=== PATIENT | female | born 1990 | race Native Hawaiian/Other Pacific Islander ===

== ENCOUNTER 2018-12-12 10:18 | Outpatient (CLI) | payer OTHER | END 2018-12-12 20:20 | disposition home or self-care (01) | LOC: US 10:18 | DX: N63.0 Unspecified lump in unspecified breast (principal) ==

== ENCOUNTER 2019-02-05 15:16 | Outpatient (CLI) | payer OTHER | END 2019-02-05 22:31 | disposition home or self-care (01) | LOC: US 15:16 | DX: N63.11 Unspecified lump in the right breast, upper outer quadrant (principal) ==

== ENCOUNTER 2019-06-17 09:31 | Outpatient (CLI) | payer OTHER | END 2019-06-17 23:12 | disposition home or self-care (01) | LOC: US 09:31 | DX: N64.4 Mastodynia (principal) ==